=== PATIENT | female | born 1995 | race Caucasian/White ===

== ENCOUNTER 2018-07-26 18:11 | Inpatient (IN) | payer OTHER ==
[2018-07-26] MEDS ORDERED: Dinoprostone* 10 MG VAG.SUPP VAGINAL ONE (18:40)
[2018-07-26] MEDS ORDERED: Promethazine INJ(RESTRICTED)* 25 MG/ML 1 ML VIAL IM PRN (22:30)
--- NOTE | 2018-07-27 08:03 | PN ---
Progress Note - Progress Note Date of Service: 07/26/18 - Note time 1914 Note: S: Patient here for cervical ripening and postdates IOL. Patient feeling well, reports feeling BHC but no painful contractions. Denies FUNG, visual changes, N/V/ D. O: VE by Bob Nguyễn CNM: closed, thick, posterior UCs, irregular, approx q 3-8 min BP: 145/83 repeat 127/72 HR: 81 O2: 100 FHT 125-130, possibly 1 extended decel to, though unclear if monitoring difficulty with doubling/halving. Otherwise mod variability, no other decels, + accels A: IUP @ 40+6 days gestation for induction No evidence metabolic acidemia P: PARQ discussion cervical ripening with cervidil, patient in agreement. Reviewed monitoring overnight and possible need for continued cervical ripening in am if no change. Patient would consider going home after two rounds of cervical ripening with return next day for IOL.
[2018-07-27] MEDS ORDERED: SUBUTEX 8 MG PO SCH (09:00)
--- NOTE | 2018-07-27 09:06 | PN ---
Progress Note - Progress Note Date of Service: 07/27/18 Note: S: RN removed Cervidil at 0710 this morning. Pt reports intermittent cramping since about 0200. Was able to rest overnight. FOB supportive and attentive at bedside. Mother and father also at bedside. Pt reports feeling "ready to meet this baby". Would like to discuss ongoing ripening/induction. O: BP 129/66 HR 74 T 98.8 FHT 125bpm. Moderate variability. +Accels. No decels UCs q 5 min, mild VE: v. posterior closed/long/vtx 0 station A: IUP at 41-0/7 here for postdates ripening/induction No evidence of metabolic acidemia H/O substance abuse on subutex P: Discussed options. Given Johnson Score 3, cervix unfavorable for induction. Discussed pros/cons, risks/benefits to repeat Cervidil vs. trial oral or vaginal misoprostol. CNM recommends trial of oral misoprostol given little effect from first Cervidil placement. Many questions answered. Pt and FOB reviewed and agree to trial oral misoprostol. Will monitor per protocol. Re- eval in 4 hours or sooner PRN onset active labor, concerns.
[2018-07-27] MEDS: Buprenorphine TAB* 8 MG PO SCH ×3 (09:15→21:14)
[2018-07-27] MEDS: Misoprostol TAB* 100 MCG PO SCH ×3 (09:16→22:15)
--- NOTE | 2018-07-27 14:12 | PN ---
Progress Note - Progress Note Date of Service: 07/27/18 Note: S: Pt reports feeling tightening and pressure with contractions. Denies pain. Sitting upright in bed, resting comfortably. FOB supportive and attentive at bedside. Mother and father also at bedside eating pizza and wings. O: BP 129/66 HR 74 T 98.8 FHT 125bpm. Moderate variability. +Accels. variable decels UCs q2-5 min, occasional coupling, palpate strong VE: closed/thick, posterior A: IUP at 41-0/7 here for postdates ripening/induction No evidence of metabolic acidemia H/O substance abuse on subutex P: Discussed options. Given Johnson Score 3, cervix unfavorable for induction. Discussed pros/cons, risks/benefits to repeat oral misoprostol. CNM recommends oral misoprostol given cervix unchanged. Next dose due at 1500, will assess contraction pattern at that time before giving next dose. Pt and FOB in agreement with plan. Will monitor per protocol.
[2018-07-27] MEDS ORDERED: Buffered Lidocaine 1% SYRIN* 1 ML/SYRINGE INTRADERM ONE (15:08)
[2018-07-27] MEDS ORDERED: Lactated Ringers 1000 ML Bag* 1,000 ML IV ONE (15:08)
--- NOTE | 2018-07-27 15:22 | HP ---
General Information - Reason for Visit IUP@41 weeks here for IOL for postdates - General Information Maternal Age: 23 Grav: 2 Para: 0 SAB: 1 IEA: 0 Estimated Due Date: 07/20/18 Determined By: LMP Maternal Blood Type and Rh: O Positive - Results this Serology/RPR Result: Non-Reactive Rubella Result: Immune HBsAg Result: Negative HIV Result: Negative GBS Culture Result: Negative Past Medical History Pertinent Past Medical History: See Records - History of drug abuse - clean x3 years, subutex x2 years Past Medical History Comment: Drug addiction Depression/anxiety Migraine Back pain Hypertension? (may be white coat syndrome Pertinent Past Surgical History: See Records - [place] tooth extraction ; tonsillectomy Pertinent Family History: See Records Family History Comment: Mother: bipolar Maternal grandmother: scoliosis - Antepartal Records Antepartal Records: Reviewed, Complicated by: - Hx of opiate addiction ; hydronephrosis L kidney Review of Systems Constitutional: Comfortable CV Complaint: No Respiratory: Shortness of Breath: No Gastrointestinal: No Nausea/Vomiting, Normal Bowel Movement Genitourinary: No Dysuria, No Bleeding, No Leaking Fluid Musculoskeletal: No Complaint, No Epigastric Pain, Contractions Neurological: No Headache, No Visual Changes Movement: Normal Exam Allergies/Adverse Reactions: Allergies Penicillins Allergy (Verified 07/26/18 22:39) Shortness of Breath 125/67, HR 75, RR 18, Temp 98.8 - Measurements Height: 5 ft 7 in Weight: 174 lb Weight in lbs: 174.189451 Body Mass Index (BMI): 27.2 Pre- Weight: 125 lb Weight Gained This : 49 lbs and 0 ozs - Exam Breast: Breast Exam Deferred CVA: No CVA Tenderness Extremities: Edema - normal lower edema of Heart: Normal Rhythm/Heart Sounds HEENT: No Significant Findings Lungs: Clear Bilaterally Rectal: Rectal Exam Deferred Reflexes: DTR 2+ Thyroid: No Thyromegaly - Abdominal Exam Abdomen Exam: Non-Tender - Ultrasound/Biophysical Profile Ultrasound Status: Not Done Targeted Exam Findings Estimated Weight: 8lbs Cervical Exam: Closed Effacement: Thick Station: -1 Presenting Part: Vertex Membrane Status: Intact Bleeding/Discharge: None EFM Findings - External Monitor Findings Baseline Heart Rate: 120 External Monitor Findings: Accelerations Present, No Pattern of Variable or Late Decelerations, Variability Moderate Contractions: Regular, Moderate, Strong, 45-90 Seconds Assessment/Plan - Assessment IUP@41+0, IOL for postdates Hx of substance abuse, on subutex Pt feeling regular contractions No evidence of metabolic acidemia - Obstetrical Risk Factors Obstetrical Risk Factors: Post-Dates - Plan Plan: Admit - Anticipate Vaginal Delivery Plan Comment: Plan: IOL: Risks and benefits pitocin vs. 2nd dose of misoprostol discussed with pt and partner. Given periods of >5 contractions in 10 minutes, decision made to begin low-dose pitocin. Pt and in agreement with plan Concerned about pain management in labor. Will arrange anesthesia consult. Re-evaluate prn. Anticipate progression to
[2018-07-27 15:53] LABS: ABS Basophils 0 10^3/ul (0-0.2); ABS Eosinophils 0.2 10^3/ul (0-0.6); ABS Lymphocytes 1.9 10^3/ul (1.0-4.8); ABS Monocytes 0.6 10^3/ul (0-0.8); ABS Neutrophils 6.7 10^3/ul (1.5-7.7); ABS Nucleated RBC 0 10^3/ul; Eosinophil % 1.9 %; Hematocrit 36 % (35-47); Hemoglobin 12.2 g/dl (12.0-16.0); Lymphocyte % 20.4 %; Mean Corpuscular HGB Conc 34 g/dl (31-36); Mean Corpuscular Hemoglobin 28 pg (27-31); Mean Corpuscular Volume 83 fL (80-97); Mean Platelet Volume 9.3 fL (7.4-10.4); Nucleated Red Blood Cells % 0; Platelet Count 201 10^3/ul (150-450); Red Blood Count 4.34 10^6/ul (4.00-5.40); Red Cell Distribution Width 14 % (10.5-15); White Blood Count 9.5 10^3/ul (3.5-10.8)
[2018-07-27] MEDS ORDERED: Oxytocin in LR* 20 UNITS/1,000 ML BAG IVPB SCH (16:00)
[2018-07-27] MEDS ORDERED: Lactated Ringers 1000 ML Bag* 1,000 ML IV SCH (16:00)
--- NOTE | 2018-07-27 20:45 | PN ---
Progress Note - Progress Note Date of Service: 07/27/18 Note: S: Patient resting in bed with FOB in chair sleeping at bedside. Pt reports feeling pressure with contractions, states a bit more intense than earlier. O: BP 112/63, HR 72 VE closed (dimple)/0/50% Pit off UCs, with Pit q1-2 min, now approx q 3-8 min, ctx palpate mild-moderate, good resting tone FHT 118, 1 decel to 90s. Now moderate variability, no other decels, +accels A: IUP @ 41 days gestation for induction Hx of substance use disorder - on subutex Small change in cervix No evidence metabolic acidemia Tachysystole resolved Johnson score 3, unfavorable P: Cervidil to placed overnight Re-check PRN Anticipate progression to
[2018-07-27] MEDS ORDERED: Dinoprostone* 10 MG VAG.SUPP VAGINAL ONE (21:15)
--- NOTE | 2018-07-27 22:25 | PN ---
Progress Note - Progress Note Date of Service: 07/27/18 Note: S: Pt in bed resting. States feeling tired and ready to sleep after taking subutex O: FHT 110bpm, +accels, variable decels, moderate variability UCs irregular, mild VE: closed/0/50% A: IUP at 41-0/7 here for postdates ripening/induction H/O substance abuse on subutex No evidence of metabolic acidemia Irregular contractions P: Cervidil placed Re-eval in 4 hours or sooner PRN onset active labor, concerns. Anticipate progression to
--- NOTE | 2018-07-27 23:44 | PN ---
Progress Note - Progress Note Date of Service: 07/27/18 Note: SOAP S: Pt attempting to sleep. Not feeling contractions. O: FHR: baseline 110, +accels, variable decels, moderate variability Ctx: q6-9 mins VE deferred Cervidil in place IBOW A: IUP@41 weeks On subutex Category II tracing, moderate variability, no concern for metabolic acidemia at this time P: Consult with SAG re low baseline and variable decels with Cervidil in place Per SAG okay to leave Cervidil in place. If baseline consistently below 110 will consider pulling cervidil VE prn Anticipate progression to active labor
--- NOTE | 2018-07-28 00:40 | PN ---
Progress Note - Progress Note Date of Service: 07/28/18 Note: SOAP S: Pt sleeping. O: FHR: baseline 100-110, persistent decels to <100 with contractions. Contractions: q5-7 minutes A: IUP@41+1, IOL for postdates Hx of substance abuse bradycardia noted in the context of moderate variability and accelerations. No evidence of metabolic acidosis at this time. P: Cervidil pulled for intolerance of contractions and bradycardia. Will monitor closely, SAG aware
--- NOTE | 2018-07-28 01:22 | PN ---
Progress Note - Progress Note Date of Service: 07/28/18 Note: SOAP: S: pt resting comfortably. O: FHR: baseline 110, moderate variability, +accels, no decels Pt miki q3-4 mins A: IUP@41+1 here for an IOL Hx substance use, on subutex intolerance to contractions, however given moderate variability and presence of accelerations - no evidence of metabolic acidosis at this time P: Discussion between MD, CNM, pt and FOB about risks vs. benefits of . Questions answered. Plan to proceed with PLTCS. Pt and FOB in agreement with plan Anesthesia aware.
[2018-07-28] MEDS ORDERED: ceFOXitin 2 GM IVPREMIX* 2 GM/50 ML BAG ONE (01:26)
[2018-07-28] MEDS ORDERED: Sodium Citrate/Citric Acid* 15 ML UDC ONE (01:26)
[2018-07-28] MEDS ORDERED: Sodium Citrate/Citric Acid* 15 ML UDC PO ONE (01:28)
[2018-07-28] MEDS ORDERED: ceFOXitin 2 GM IVPREMIX* 2 GM/50 ML BAG IVPB ONE (01:28)
[2018-07-28] MEDS ORDERED: Morphine PF AMP (0.5MG/ML)* 5 MG/10 ML AMP ONE (02:02)
[2018-07-28] MEDS ORDERED: Lidocaine 1% MPF wEPI 200,000* 30 ML SDV ONE (02:05)
[2018-07-28] MEDS ORDERED: Lidocaine 1%* 5 ML VIAL ONE (02:07)
[2018-07-28] MEDS ORDERED: Ondansetron INJ* 2 MG/ML VIAL ONE (02:40)
[2018-07-28] MEDS ORDERED: OXYTOCIN* 10 UNITS/ML 1 ML VIAL ONE (02:40)
[2018-07-28] MEDS ORDERED: Bupivacaine-MPF SPINAL* 7.5 MG/ML - 2ML AMP ONE (02:50)
[2018-07-28] MEDS ORDERED: Phenylephrine IV* 40 MCG/ML 10 ML SYRINGE ONE (02:51)
[2018-07-28] MEDS ORDERED: EPHEDrine (Pressors)* 50 MG/ML VIAL ONE (02:51)
[2018-07-28] MEDS ORDERED: diPHENhydraMINE IV* 50 MG/ML 1 ml VIAL (BENADRYL) IV PRN (02:56)
[2018-07-28] MEDS ORDERED: Nalbuphine* 10 MG/ML 1 ML VIAL IV PRN (02:56)
[2018-07-28] MEDS ORDERED: Naloxone* 2 MG in NS 0.9% 250 ML* 250 ML IV PRN (02:56)
[2018-07-28] MEDS ORDERED: Naloxone* 0.4 MG/ML 1 ML VIAL IV PRN (02:56)
[2018-07-28] MEDS ORDERED: Ondansetron INJ* 2 MG/ML VIAL IV PRN (02:56)
[2018-07-28] MEDS ORDERED: Witch Hazel PAD* JAR TOPICAL PRN (04:05)
[2018-07-28] MEDS ORDERED: Glycerin ADULT SUPP PR PRN (04:05)
[2018-07-28] MEDS ORDERED: Dibucaine 1% 28.35 GM TUBE PR PRN (04:05)
[2018-07-28] MEDS: Ketorolac INJ* 30 MG/ML 1 ML VIAL IV PRN ×4 (04:25→23:03)
[2018-07-28] MEDS ORDERED: Lactated Ringers 1000 ML Bag* 1,000 ML IV SCH (05:00)
[2018-07-28] MEDS ORDERED: Oxytocin in LR* 20 UNITS/1,000 ML BAG IVPB SCH (05:00)
[2018-07-28] MEDS ORDERED: Methylergonovine INJ* 0.2 MG/ML 1ML AMP ONE (05:12)
[2018-07-28] MEDS: Simethicone TAB* 80 MG TAB.CHEW PO SCH ×5 (08:25→23:03)
[2018-07-28] MEDS: Docusate CAP* 100 MG PO SCH ×3 (08:25→20:26)
[2018-07-28] MEDS: Acetaminophen TAB* 325 MG PO PRN ×3 (08:25→20:26)
[2018-07-28] MEDS: Buprenorphine TAB* 8 MG PO SCH ×3 (08:37→20:26)
--- NOTE | 2018-07-28 09:00 | OP ---
DATE OF OPERATION: 07/28/18 - ROOM #115 DATE OF : 89 SURGEON: Hernando Chong MD ANESTHESIA: Spinal with Duramorph. PRE-OP DIAGNOSIS: Failed induction, category II tracing for delivery and post date. POST-OP DIAGNOSIS: Failed induction, category II tracing for delivery and post date. OPERATIVE PROCEDURE: Low transverse section. ESTIMATED BLOOD LOSS: Less than 600 cc. FINDINGS: This is a 23-year-old 2, para 0, who presented at 41 weeks for induction. She had 2 doses of Cervidil. With the second dose, her baby's heart rate would drop below 100 on a regular basis with a baseline of 100, and given this intolerance to even mild contractions, risks, benefits, alternatives , indications of a section were discussed with the patient and questions were answered, and we decided to proceed with a . She had a viable female. Apgars 9 and 9, weight was 7 pounds 5 ounces. Normal-appearing uterus, fallopian tubes, and ovaries. The uterus did have hypotonia. DESCRIPTION OF PROCEDURE: The patient was identified, procedure identified as a low-transverse section. The patient was taken to the operating room, prepped and draped in the usual fashion in the left lateral recumbent position under spinal anesthesia. A Pfannenstiel incision was made in the abdomen, carried down through fat, fascia, and peritoneum. A transverse incision was made in the lower uterine segment and extended laterally using blunt dissection. The was delivered through the incision with ease. The cord was doubly clamped and cut and the infant was handed to the awaiting executive search consultant. Cord blood was obtained. Placenta delivered spontaneously. The uterus was wiped out with a wet lap sponge. The uterine incision was then closed using 0 Polysorb in a running fashion. A second layer was used to imbricate the first layer. Good hemostasis verified using 0 Polysorb figure-of- eight sutures. The uterus placed back in the abdominal cavity. The gutters were wiped out with a wet lap sponge. The peritoneum was then closed using 3-0 Polysorb in a running fashion. Good hemostasis in the subrectus layers. The fascia was closed using 0 Polysorb in a running fashion. Copious irrigation was utilized and suctioned out, and the skin was closed with 4-0 Monocryl in a subcuticular fashion. All sponge and instrument counts were correct. The patient returned to the recovery room in stable condition. [id number]/[facility] #: [id number] SHALONDA
[2018-07-28] MEDS ORDERED: Polyethylene Glycol 3350 BTL* 238 GM BTL PO ONE (11:47)
[2018-07-28] MEDS ORDERED: Polyethylene Glycol 3350* 17 GM PACKET PO ONE (14:00)
[2018-07-28] MEDS ORDERED: Zolpidem TAB* 5 MG PO PRN (18:15)
[2018-07-29] MEDS: Acetaminophen TAB* 325 MG PO PRN ×4 (01:06→19:28)
[2018-07-29] MEDS: Ibuprofen TAB* 600 MG PO PRN ×3 (05:51→18:36)
[2018-07-29 07:31] LABS: ABS Basophils 0.1 10^3/ul (0-0.2); ABS Eosinophils 0.2 10^3/ul (0-0.6); ABS Lymphocytes 2.4 10^3/ul (1.0-4.8); ABS Monocytes 0.6 10^3/ul (0-0.8); ABS Neutrophils 6.6 10^3/ul (1.5-7.7); ABS Nucleated RBC 0 10^3/ul; Eosinophil % 1.9 %; Hematocrit 30 % (35-47); Hemoglobin 10.2 g/dl (12.0-16.0); Lymphocyte % 24.4 %; Mean Corpuscular HGB Conc 34 g/dl (31-36); Mean Corpuscular Hemoglobin 28 pg (27-31); Mean Corpuscular Volume 84 fL (80-97); Mean Platelet Volume 8.7 fL (7.4-10.4); Nucleated Red Blood Cells % 0; Platelet Count 185 10^3/ul (150-450); Red Blood Count 3.61 10^6/ul (4.00-5.40); Red Cell Distribution Width 14 % (10.5-15); White Blood Count 9.9 10^3/ul (3.5-10.8)
[2018-07-29] MEDS ORDERED: Ferrous Gluconate TAB* 324 MG TAB PO SCH (09:00)
[2018-07-29] MEDS: Buprenorphine TAB* 8 MG PO SCH ×3 (09:32→18:37)
[2018-07-29] MEDS: Simethicone TAB* 80 MG TAB.CHEW PO SCH ×4 (09:32→21:25)
[2018-07-29] MEDS: Docusate CAP* 100 MG PO SCH ×3 (09:32→21:25)
[2018-07-29] MEDS: Polyethylene Glycol 3350* 17 GM PACKET PO SCH (18:36)
[2018-07-30] MEDS: Ibuprofen TAB* 600 MG PO PRN ×4 (00:30→20:53)
[2018-07-30] MEDS: Acetaminophen TAB* 325 MG PO PRN ×5 (01:24→22:39)
[2018-07-30] MEDS: Buprenorphine TAB* 8 MG PO SCH ×3 (06:50→18:51)
[2018-07-30] MEDS: Simethicone TAB* 80 MG TAB.CHEW PO SCH ×4 (09:58→20:53)
[2018-07-30] MEDS: Docusate CAP* 100 MG PO SCH ×3 (09:58→20:53)
[2018-07-30] MEDS: Polyethylene Glycol 3350* 17 GM PACKET PO SCH (10:14)
[2018-07-31] MEDS: Ibuprofen TAB* 600 MG PO PRN ×2 (05:07→11:13)
[2018-07-31] MEDS: Acetaminophen TAB* 325 MG PO PRN ×3 (05:08→14:12)
[2018-07-31] MEDS: Buprenorphine TAB* 8 MG PO SCH ×2 (07:09→13:21)
[2018-07-31 08:51] VITALS: BP 106/79
[2018-07-31] MEDS: Docusate CAP* 100 MG PO SCH ×2 (10:01→13:22)
[2018-07-31] MEDS: Simethicone TAB* 80 MG TAB.CHEW PO SCH ×2 (10:01→13:22)
[2018-07-31] MEDS: Polyethylene Glycol 3350* 17 GM PACKET PO SCH (10:31)
== END 2018-07-31 16:00 | disposition home or self-care (01) | DRG 540 ==
LOC: MCHOBOUT 18:11 → MCHOB 07-27 15:06
PROVIDERS: ADMIT Advanced Practice Midwife; ATTEND Obstetrics & Gynecology
PROC: 10D00Z1 Extraction of Products of Conception, Low, Open Approach (ICD-10-PCS; principal; 2018-07-28 02:05)
DX: O76 Abnormality in fetal heart rate and rhythm complicating labor and delivery (principal); O10.92 Unspecified pre-existing hypertension complicating childbirth; O48.0 Post-term pregnancy; O99.344 Other mental disorders complicating childbirth; F41.8 Other specified anxiety disorders; O62.0 Primary inadequate contractions; O62.2 Other uterine inertia; Z3A.41 41 weeks gestation of pregnancy; Z37.0 Single live birth
CPT/HCPCS: 36415; 59200; 85025; 86850; 86900; 86901; A9270-GY; J0694; J1885; J2001; J2210; J2405; J2590; S0191

== ENCOUNTER 2021-04-07 07:30 | Inpatient (IN) ==
[2021-04-05 15:53] LABS: ABS Eosinophils 0.1 10^3/ul (0-0.6); ABS Lymphocytes 1.4 10^3/ul (1.0-4.8); ABS Monocytes 0.3 10^3/ul (0-0.8); ABS Neutrophils 4.5 10^3/ul (1.5-7.7); Eosinophil % 1.1 %; Hematocrit 33 % (35-47); Hemoglobin 11.3 g/dL (12.0-16.0); Mean Corpuscular HGB Conc 34 g/dL (31-36); Mean Corpuscular Hemoglobin 27 pg (27-31); Mean Corpuscular Volume 80 fL (80-97); Mean Platelet Volume 9.5 fL (7.4-10.4); Nucleated Red Blood Cells % 0.1; Platelet Count 196 10^3/uL (150-450); Red Cell Distribution Width 14 % (10-15); White Blood Count 6.3 10^3/uL (3.5-10.8)
[2021-04-07] MEDS ORDERED: Morphine PF AMP (0.5MG/ML) 5 MG/10 ML AMP ONE (10:23)
[2021-04-07] MEDS ORDERED: Oxytocin 10 UNITS/ML 1 ML VIAL ONE ×2 (10:24→11:38)
[2021-04-07] MEDS ORDERED: Ondansetron 4 mg VIAL 2 MG/ML 2 ml VIAL ONE (10:24)
[2021-04-07] MEDS ORDERED: DiMENhydriNATE IV 50 mg/ml 1 ml VIAL IV PUSH PRN (10:27)
[2021-04-07] MEDS ORDERED: Naloxone 4 mg VIAL (10 ml) 2 MG in NS 0.9% 250 ml 250 ML IV PRN (10:27)
[2021-04-07] MEDS ORDERED: fentaNYL 100 mcg/2 ml 50 MCG/ML VIAL IV PRN (10:27)
[2021-04-07] MEDS ORDERED: Naloxone 0.4 mg VIAL 0.4 mg/ml 1 ml VIAL IV PRN ×2 (10:27)
[2021-04-07] MEDS ORDERED: Ondansetron 4 mg VIAL 2 MG/ML 2 ml VIAL IV PRN (10:27)
[2021-04-07] MEDS ORDERED: Metoclopramide 5 MG/ML VIAL (10 mg) IV PRN (10:27)
[2021-04-07] MEDS ORDERED: ceFOXitin 2 GM PREMIX 50 ML IVPB ONE (10:30)
[2021-04-07] MEDS ORDERED: Sodium Citrate/Citric Acid LIQ 15 ML UDC ONE (10:34)
[2021-04-07] MEDS ORDERED: Glycerin ADULT 2.4 gm SUPP PR PRN (12:11)
[2021-04-07] MEDS ORDERED: Witch Hazel PAD JAR TOPICAL PRN (12:11)
[2021-04-07] MEDS ORDERED: Dibucaine 1% OINT 28.35 GM TUBE PR PRN (12:11)
[2021-04-07 12:25] LABS: Urine Appearance Cloudy; Urine Bilirubin Negative (Negative); Urine Blood Negative (Negative); Urine Color Yellow; Urine Glucose Negative (Negative); Urine Ketones Negative (Negative); Urine Nitrite Negative (Negative); Urine Protein Negative (Negative); Urine Urobilinogen Negative (Negative)
[2021-04-07 12:36] LABS: Urine Benzodiazepine Screen None Detected (None Detect); Urine Opiates Screen None Detected (None Detect)
[2021-04-07 12:46] LABS: Urine Bacteria 1+ (Absent); Urine Red Blood Cell Trace(0-2/hpf) (Absent); Urine Squamous Epithelial Cell Present (Absent); Urine White Blood Cell 3+(>20/hpf) (Absent)
[2021-04-07] MEDS ORDERED: Oxytocin in LR 20 UNITS/1,000 ML BAG IVPB SCH (13:00)
[2021-04-07] MEDS ORDERED: Lactated Ringers 1000 ml BAG 1,000 ML IV SCH (13:00)
[2021-04-08 06:58] LABS: ABS Basophils 0.1 10^3/ul (0-0.2); ABS Eosinophils 0.2 10^3/ul (0-0.6); ABS Monocytes 0.6 10^3/ul (0-0.8); ABS Neutrophils 6.1 10^3/ul (1.5-7.7); Hematocrit 33 % (35-47); Hemoglobin 11.3 g/dL (12.0-16.0); Lymphocyte % 22.1 %; Mean Corpuscular HGB Conc 34 g/dL (31-36); Mean Corpuscular Hemoglobin 28 pg (27-31); Mean Corpuscular Volume 81 fL (80-97); Mean Platelet Volume 9.4 fL (7.4-10.4); Platelet Count 181 10^3/uL (150-450); Red Blood Count 4.09 10^6 /uL (3.70-4.87); Red Cell Distribution Width 14 % (10-15); White Blood Count 8.9 10^3/uL (3.5-10.8)
[2021-04-08] MEDS ORDERED: Varicella Virus Vaccine Live 0.5 ML VIAL SUBCUT ONE (09:00)
[2021-04-08] MEDS ORDERED: Tetan/Diph/Pertus SYR(Tdap) 0.5 ML SYR(BOOSTRIX) use SYR contains LATEX IM ONE (09:00)
[2021-04-09] MEDS ORDERED: Flu vaccine *QUAD* 2021-22* 0.5 ML SYRINGE IM ONE (09:00)
[2021-04-10 07:54] VITALS: BP 109/63
== END 2021-04-10 18:11 | disposition home or self-care (01) | DRG 540 ==
LOC: MCHOB 09:37
PROVIDERS: ADMIT Obstetrics & Gynecology; ATTEND Obstetrics & Gynecology